=== PATIENT | male | born 1960 | race Caucasian/White ===

== ENCOUNTER → 2019-07-25 | Day surgery (SDC) | payer OTHER ==
[~2019-07-25] MED LIST: ACETAMINOPHEN 1000 MG/100 ML IV ONE; DEXAMETHASONE SOD PHOS INJ 4 MG/ML VIAL ONE; EPHEDRINE SULFATE INJ 50 MG/10 ML SYR ONE; FENTANYL CITRATE/PF 100MCG/2 ML INJ ONE; LIDOCAINE 1% W/EPINEPHRINE 20 ML VIAL ONE; LIDOCAINE HCL 2% LOCAL INJ 5 ML SDV VIAL INJ ONE; MIDAZOLAM HCL 2 MG/2 ML VIAL ONE; MUPIROCIN 2% OINT 22 GM TUBE ONE; ONDANSETRON HCL INJ 2MG/ML 2ML 2 MG/ML VIAL ONE; OXYMETAZOLINE HCL 0.05% NAS 1 SPRAY BTL ONE; PROPOFOL IV EMULSION 10 MG/ML 20 ML VIAL ONE; ROCURONIUM BROMIDE 10 MG/ML 5ML VIAL ONE; SEVOFLURANE INHAL SOLN 250 ML PEN BTL ONE; SODIUM CHLORIDE/ALOE VERA 14.1GM NASAL GEL ONE; SUCCINYLCHOLINE 200 MG/10 ML SYR ONE; TESTOSTERONE INJ SC
--- NOTE | 2019-07-25 07:05 | NUR ---
SPIRITUAL CARE - Pre-Surgery Assessment: Pt in bed. Pt's at bedside. Pt reported supportive attention from family and friends. Intervention: I provided pastoral presence, hospitality, sympathetic listening, and prayer. I acquainted pt with availability of md psychiatry while hospitalized. Outcome: Pt expressed appreciation for visit. No need for follow up indicated at this time. LAURA MOORE Podiatric Physician Spiritual Care Department O: [phone] Pager: [phone] ([phone] calling from)
[2019-07-25 10:43] VITALS: BP 130/81
--- NOTE | 2019-07-25 12:08 | Operative Report ---
DATE OF PROCEDURE: 07/25/2019 SURGEON: Brent Davis MD PREOPERATIVE DIAGNOSES: Nasal obstruction. Deviated septum. Turbinate hypertrophy. POSTOPERATIVE DIAGNOSES: Nasal obstruction. Deviated septum. Turbinate hypertrophy. PROCEDURES: Septoplasty, bilateral inferior turbinate reductions (submucous resection). SIGNIFICANT FINDINGS: Deviated bony septum to the right and bilateral inferior turbinate hypertrophy. ANESTHESIA: General endotracheal tube anesthesia. SPECIMENS REMOVED: Septal contents. ESTIMATED BLOOD LOSS: 30 mL. COMPLICATIONS: None. INDICATIONS: The patient is a 59-year-old white male with a 10-years history of nasal obstruction, worse on the right. He denies sinus pain or headaches, epistaxis, or rhinorrhea. He has had no previous sinus or nasal surgery. He has been refractory to Flonase nasal spray. On examination, his nasal septum is deviated to the right, primarily involving the bony septum. There is also bilateral inferior turbinate hypertrophy. He is scheduled for septoplasty and bilateral (submucous resection) reductions of the inferior turbinates for the treatment of nasal obstruction caused by deviated septum and turbinate hypertrophy. Risks and complications of the procedures were thoroughly discussed with the patient include infection, bleeding, scarring, failure to improve, persistent nasal obstruction, need for additional operations, septal perforation resulting in crusting, irritation, bleeding, and pain, inability to smell or taste, leakage of cerebrospinal fluid ("brain fluid"), need for blood transfusions, damage to surrounding nerves, blood vessels, and muscles. He fully understands and gives consent. DESCRIPTION OF PROCEDURE: The patient was taken to the operating room and placed supine on the operating table, where general anesthesia was achieved through orotracheal intubation. Eyes were taped. Ancef antibiotics were administered intraoperatively. Injection with 7 mL of 1% lidocaine with 1:100,000 epinephrine was injected into the submucoperichondrial planes bilaterally followed by packing of the nasal cavities with cottonoid pledgets soaked with Afrin. The face was prepped and draped in the usual sterile fashion. Cottonoid pledgets were then removed. Inspection with 0- degree rigid nasal endoscope revealed no evidence of masses, tumors, polyps, or purulence. This nasal septum was deviated to the right, primarily involving the anterior portion of the bony septum. The inferior turbinates were also hypertrophied. Candido- transfixation incision was made on the left-hand side with a #15 blade. The overlying mucoperichondrium and mucoperiosteum were elevated off the left side past the bony cartilaginous junction. The quadrangular cartilage was disarticulated from the bony septum. The deviated bony septum was taken down with Bryce Zabala double-action rongeur and this resulted in a straight septum. Following this, injection with 1% lidocaine with 1:100,000 epinephrine was injected into the anterior portions of the inferior turbinates bilaterally. Stab incisions were then made anteriorly in both inferior turbinates. Tunneling was then created with the [place] elevator. The submucosal tissues including the inferior aspects of the inferior turbinate bone were then debrided with the microdebrider followed by lateralization of the inferior turbinates with a Ogden elevator. Following this, the hemitransfixion incision was repaired with interrupted 4-0 Monocryl followed by the placement of bilateral silastic septal splints coated with antibiotic ointment. The silastic septal splints were held in place with through and through 2-0 silk followed by the placement of bilateral Merocel nasal packs also coated with antibiotic ointment. The Merocel packs were placed bilaterally with the strings tied loosely on the columella. The patient was awakened in the operating room, extubated, and taken to the recovery room in good condition. Brent Davis MD JKY/MODL /[id number] STEVEN
== END | disposition home or self-care (01) ==
LOC: OR 05:57
PROVIDERS: ATTEND Otolaryngology
DX: J34.2 Deviated nasal septum (principal); J34.3 Hypertrophy of nasal turbinates; J34.89 Other specified disorders of nose and nasal sinuses; G47.33 Obstructive sleep apnea (adult) (pediatric); E29.1 Testicular hypofunction; N20.0 Calculus of kidney; Z01.810 Encounter for preprocedural cardiovascular examination
CPT/HCPCS: 30140; 30520; 88300; 93005; J0131; J1100; J2001; J2250; J2405; J2704; J3010